=== PATIENT | male | born 1970 | race Hispanic/Latino ===

== ENCOUNTER → 2019-12-11 15:48 | Outpatient (CLI) | payer OTHER, SELFPAY ==
[2019-12-11 17:52] LABS: Hemoglobin A1C% w Est Avg Glu 6.7 % (4.0-6.0)
[2019-12-11 18:10] LABS: Cholesterol 198 mg/dL (140-199); Glucose 109 mg/dL (70-100); HDL Cholesterol 56 mg/dL (40-60); LDL Cholesterol Calculated 126 mg/dL (<100); Triglycerides 78 mg/dL (35-150)
== END ==
PROVIDERS: PCP Family Medicine; Referring Provider Registered Nurse; Visit Provider Registered Nurse
DX: Z00.00 Encounter for general adult medical examination without abnormal findings (principal)
CPT/HCPCS: 36415; 80061; 82947; 83036

== ENCOUNTER → 2020-04-11 08:19 | Outpatient (CLI) | payer OTHER, SELFPAY ==
[2020-04-11 08:48] LABS: Creatinine Urine Random 113.7 mg/dL
[2020-04-11 08:54] LABS: Microalbumin Urine Random < 0.6 mg/dL (0-1.6)
[2020-04-11 09:01] LABS: Alanine Aminotransferase 32 IU/L (<50); Albumin 4.4 g/dL (3.5-5.0); Albumin Globulin Ratio 1.6 (1.0-2.8); Alkaline Phosphatase 69 U/L (38-126); Aspartate Aminotransferase 30 IU/L (17-59); BUN Creatinine Ratio 22.2 (6-22); Bilirubin Total 1.1 mg/dL (0.2-1.3); Blood Urea Nitrogen 18 mg/dL (9-20); Calcium 9.1 mg/dL (8.4-10.2); Carbon Dioxide 28 mmol/L (22-32); Chloride 103 mmol/L (98-107); Cholesterol 163 mg/dL (140-199); Estimated Glomerular Filt Rate > 60.0 mL/min (>60); Globulin 2.8 g/dL (1.7-4.1); Glucose 120 mg/dL (70-100); HDL Cholesterol 56 mg/dL (40-60); HEMOLYSIS < 15 (0-50); LDL Cholesterol Calculated 99 mg/dL (<100); Potassium 4.5 mmol/L (3.4-5.1); Sodium 136 mmol/L (137-145); Total Protein 7.2 g/dL (6.3-8.2); Triglycerides 40 mg/dL (35-150)
== END ==
PROVIDERS: PCP Family Medicine; Referring Provider Family Medicine; Visit Provider Family Medicine
DX: E11.9 Type 2 diabetes mellitus without complications (principal); E78.5 Hyperlipidemia, unspecified
CPT/HCPCS: 36415; 80053; 80061; 82043; 82570; 83036

== ENCOUNTER → 2020-09-03 16:43 | Outpatient (CLI) | payer OTHER, SELFPAY ==
[2020-09-03 19:05] LABS: Thyroid Stimulating Hormone 1.66 uIU/mL (0.47-4.68)
[2020-09-10 11:54] LABS: Acetylcholine Receptor Bind AB 0.05 nmol/L (0.00-0.24)
== END ==
PROVIDERS: PCP Family Medicine; Referring Provider Ophthalmology; Visit Provider Ophthalmology
DX: H02.401 Unspecified ptosis of right eyelid (principal)
CPT/HCPCS: 36415; 83519; 84443